=== PATIENT | male | born 1985 | race Asian ===

== ENCOUNTER 2023-04-24 08:23 | Day surgery (SDC) | payer BC ==
[~2023-04-24] VITALS: Ht 162.6 cm; Wt 69.4 kg
[~2023-04-24 08:23] MED LIST: LR 1,000 ML IV SCH; NORCO 325 MG-51 TAB PO; Ondansetron 4 MG/2 ML VIAL IV PRN; PROTONIX 40MG T40 MG PO; ZOFRAN ODT4 MG PO
[2023-04-24] MEDS ORDERED: DOXYCYCLINE HY100 MG PO (09:56)
[2023-04-24] MEDS ORDERED: LEVSIN 0.10.125 MG/T PO (09:57)
[2023-04-24] MEDS ORDERED: VITAMIN B COMPL1 SGL PO (09:57)
[2023-04-24] MEDS ORDERED: LIPITOR20 MG PO (09:58)
[2023-04-24] MEDS ORDERED: SYNTHROID0.05 MG/TA PO (09:58)
[2023-04-24] MEDS ORDERED: CYMBALTA 60MG60 MG PO (09:59)
[2023-04-24] MEDS ORDERED: MOBIC 7.5MG7.5 MG PO (09:59)
[2023-04-24] MEDS ORDERED: BENICAR 20MG TA20 MG PO (10:00)
[2023-04-24 10:06] VITALS: BP 125/93; PULSE 75; TEMP 97.2
[2023-04-24] MEDS ORDERED: Lidocaine PF 2% (20 MG/ML) 5 ML VIAL ONE (10:21)
[2023-04-24 11:10] VITALS: BP 108/79; PULSE 76; TEMP 97.2
[2023-04-24 11:15] VITALS: BP 108/80; PULSE 73
[2023-04-24 11:30] VITALS: BP 119/84; PULSE 68
--- NOTE | 2023-04-24 12:35 | NUR ---
Pt returned via cart to recliner in [facility]. Pts friend/ride home present in room upon return at 1110. Pt SBA to recliner in [place]. A&O. Tolerated oral intake. VS remain stable. After negative result of h. pylori resulted, pt ok to dc home. IV removed and pressure dressing applied. Dc teaching completed, pt verbalized understanding. Taken via wheelchair to private vehicle for dc home with friend, Aylin driving.
== END 2023-04-24 12:35 | disposition home or self-care (01) ==
LOC: SDCO 08:23
DX: K29.30 Chronic superficial gastritis without bleeding (principal); K21.9 Gastro-esophageal reflux disease without esophagitis
CPT/HCPCS: J2704; J7120